=== PATIENT | female | born 2005 | race Two or more races ===

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

== ENCOUNTER 2024-02-02 18:55 | Emergency (ER) | payer SELFPAY ==
[2024-02-02] MEDS: Prochlorperazine 5 MG Tab PO ONE (20:28)
[2024-02-02] MEDS: diphenhydrAMINE 50 MG Cap PO ONE (20:28)
[2024-02-02] MEDS: Azithromycin 500 MG Tab PO ONE (22:31)
[2024-02-03 04:49] VITALS: BP 114/64; PULSE 87
== END 2024-02-02 22:35 | disposition home or self-care (01) ==
LOC: FB.ED 18:55
DX: J01.30 Acute sphenoidal sinusitis, unspecified (principal); R51.9 Headache, unspecified; E66.9 Obesity, unspecified; Z79.899 Other long term (current) drug therapy; Z86.16 Personal history of COVID-19; Z90.49 Acquired absence of other specified parts of digestive tract; Z68.31 Body mass index [BMI] 31.0-31.9, adult
CPT/HCPCS: 70450; 99284; A9270; Q0164

== ENCOUNTER 2024-02-27 00:35 | Emergency (ER) | payer SELFPAY ==
[2024-02-27 00:51] VITALS: BP 133/76; PULSE 96
[2024-02-27] MEDS: Ondansetron 4 MG Tab.DIS PO ONE (01:06)
[2024-02-27 01:18] LABS: BASOPHILS PERCENT AUTO 0.5 % (0.2-1.5); EOSINOPHILS PERCENT AUTO 0.6 % (0.6-8.1); HEMATOCRIT 30.3 % (34.2-48.2); HEMOGLOBIN 9.9 g/dL (11.4-15.5); LYMPHOCYTES ABSOLUTE AUTO 2.6 x10-3/uL (1.0-4.4); LYMPHOCYTES PERCENT AUTO 34.9 % (18.4-52.1); MEAN CORPUSCULAR HEMOGLOBIN 23.9 pg (23.9-33.9); MEAN CORPUSCULAR HGB CONC 32.7 g/dL (31.9-34.8); MONOCYTES ABSOLUTE AUTO 0.5 x10-3/uL (0.3-1.0); MONOCYTES PERCENT AUTO 7.1 % (4.4-15.7); NEUTROPHILS ABSOLUTE AUTO 4.3 x10-3/uL (1.5-6.3); NEUTROPHILS PERCENT AUTO 56.9 % (30.8-76.2); PLATELET COUNT,PLT 339 x10(3)uL (151-488); RED BLOOD CELL COUNT 4.16 x10(6)uL (3.60-5.20); RED CELL DISTRIBUTION WIDTH 16.2 % (12.3-16.5); WHITE BLOOD CELL COUNT,WBC 7.5 x10-3/uL (3.0-10.3)
[2024-02-27 01:21] LABS: BLOOD UREA NITROGEN,BUN 5 mg/dL (7-18); BUN/CREATININE RATIO 7.1 (9-20); CALCIUM 8.9 mg/dL (8.2-10.1); CARBON DIOXIDE,CO2 25 mmol/L (21-32); CHLORIDE,CL 106 mmol/L (100-110); CREATININE 0.7 mg/dL (0.55-1.02); EST CRCL DRUG DOSING (CG) 116.32 mL/min; ESTIMATED GFR 128 mL/min (>60); GLUCOSE RANDOM 92 mg/dL (80-116); POTASSIUM,K 3.5 mmol/L (3.5-5.3); SODIUM,NA 142 mmol/L (135-145)
[2024-02-27] MEDS: hydrOXYzine HCl 50 MG/ML SDV IM ONE (01:26)
[2024-02-27 01:27] LABS: ALANINE AMINOTRANSFERASE,ALT 12 U/L (12-36); ALBUMIN 3.9 g/dL (3.2-4.5); ALKALINE PHOSPHATASE 71 IU/L (56-112); ASPARTATE AMNIOTRANSFERASE,AST 15 IU/L (5-25); BILIRUBIN TOTAL 0.3 mg/dL (0.1-1.2); PROTEIN TOTAL,TP 7.9 g/dL (6.0-8.0)
== END 2024-02-27 01:39 | disposition home or self-care (01) ==
LOC: FB.ED 00:35
DX: R10.84 Generalized abdominal pain (principal); K21.9 Gastro-esophageal reflux disease without esophagitis; E66.9 Obesity, unspecified; Z86.16 Personal history of COVID-19; Z91.89 Other specified personal risk factors, not elsewhere classified; Z90.49 Acquired absence of other specified parts of digestive tract; Z79.899 Other long term (current) drug therapy; Z68.31 Body mass index [BMI] 31.0-31.9, adult
CPT/HCPCS: 36415; 80053; 81025; 85025; 96372; 99284; J3410; Q0162

== ENCOUNTER 2024-07-12 22:25 | Emergency (ER) | payer SELFPAY ==
[2024-07-12] MEDS: Ondansetron 4 MG Tab.DIS PO ONE (22:46)
== END 2024-07-12 23:32 | disposition home or self-care (01) ==
LOC: FB.ED 22:25
DX: J06.9 Acute upper respiratory infection, unspecified (principal); E66.9 Obesity, unspecified; Z90.49 Acquired absence of other specified parts of digestive tract; Z86.16 Personal history of COVID-19; Z79.899 Other long term (current) drug therapy
CPT/HCPCS: 87428; 87651; 99283; Q0162

== ENCOUNTER 2024-08-18 00:51 | Emergency (ER) | payer SELFPAY ==
[2024-08-18 02:16] VITALS: BP 131/80; PULSE 111
[2024-08-18] MEDS: Ketorolac 30 MG/ML SDV IM ONE (02:29)
== END 2024-08-18 02:10 | disposition home or self-care (01) ==
LOC: FB.ED 00:51
DX: J10.1 Influenza due to other identified influenza virus with other respiratory manifestations (principal); M54.9 Dorsalgia, unspecified; Z79.899 Other long term (current) drug therapy; Z86.16 Personal history of COVID-19
CPT/HCPCS: 87428-QW; 99283

== ENCOUNTER 2024-08-27 23:59 | Emergency (ER) | payer SELFPAY ==
[2024-08-28 00:23] VITALS: BP 128/73; PULSE 112
[2024-08-28] MEDS: Ketorolac 30 MG/ML SDV IM ONE (00:31)
== END 2024-08-28 01:10 | disposition home or self-care (01) ==
LOC: FB.ED 23:59
DX: J01.10 Acute frontal sinusitis, unspecified (principal); E66.9 Obesity, unspecified; Z86.16 Personal history of COVID-19; Z90.49 Acquired absence of other specified parts of digestive tract; Z79.899 Other long term (current) drug therapy
CPT/HCPCS: 96372; 99283; J1885

== ENCOUNTER 2025-02-21 00:57 | Emergency (ER) | payer SELFPAY ==
[2025-02-21 01:12] VITALS: BP 131/69; PULSE 100
[2025-02-21] MEDS ORDERED: Sodium Chloride 0.9% 10 ML Syringe FLUSH PRN (01:44)
[2025-02-21 01:53] LABS: GLUCOSE,URINE NORMAL (NORMAL); OCCULT BLOOD,URINE LARGE (NEGATIVE)
[2025-02-21 01:57] LABS: APPEARANCE,URINE SLIGHTLY CLOUDY (CLEAR); SQUAMOUS EPITHELIAL CELLS,UR OCCASIONAL (NS,R,O)
[2025-02-21 02:12] LABS: BASOPHILS ABSOLUTE AUTO 0.0 x10-3/uL (0.0-0.1); BASOPHILS PERCENT AUTO 0.3 % (0.2-1.5); EOSINOPHILS ABSOLUTE AUTO 0.0 x10-3/uL (0.0-0.8); EOSINOPHILS PERCENT AUTO 0.1 % (0.6-8.1); LYMPHOCYTES ABSOLUTE AUTO 1.1 x10-3/uL (1.0-4.4); LYMPHOCYTES PERCENT AUTO 13.3 % (18.4-52.1); MEAN PLATELET VOLUME 8.0 fL (7.1-12.4); MONOCYTES ABSOLUTE AUTO 0.7 x10-3/uL (0.3-1.0); MONOCYTES PERCENT AUTO 8.1 % (4.4-15.7); NEUTROPHILS ABSOLUTE AUTO 6.7 x10-3/uL (1.5-6.3); NEUTROPHILS PERCENT AUTO 78.2 % (30.8-76.2); PLATELET COUNT,PLT 254 x10(3)uL (151-488); RED BLOOD CELL COUNT 4.28 x10(6)uL (3.60-5.20); RED CELL DISTRIBUTION WIDTH 17.1 % (12.3-16.5); WHITE BLOOD CELL COUNT,WBC 8.6 x10-3/uL (3.0-10.3)
[2025-02-21 02:14] LABS: BLOOD UREA NITROGEN,BUN 10 mg/dL (7-18); CARBON DIOXIDE,CO2 27 mmol/L (21-32); CHLORIDE,CL 106 mmol/L (100-110); CREATININE 0.7 mg/dL (0.55-1.02); EST CRCL DRUG DOSING (CG) 115.36 mL/min; ESTIMATED GFR 127 mL/min (>60); GLUCOSE RANDOM 102 mg/dL (80-116); POTASSIUM,K 4.5 mmol/L (3.5-5.3); SODIUM,NA 141 mmol/L (135-145)
[2025-02-21 02:20] LABS: A/G RATIO 1.0; ALANINE AMINOTRANSFERASE,ALT 20 U/L (12-36); ASPARTATE AMNIOTRANSFERASE,AST 19 IU/L (5-25); BILIRUBIN TOTAL 0.3 mg/dL (0.1-1.3); PROTEIN TOTAL,TP 7.6 g/dL (6.0-8.0)
[2025-02-21] MEDS: Ketorolac 30 MG/ML SDV IVPUSH ONE (02:23)
[2025-02-21] MEDS: Ondansetron 4 MG/2 ML SDV IVPUSH ONE (02:23)
[2025-02-21] MEDS: Iopamidol 755 Mg/ML 100 ML Bottle IV ONE (04:18)
== END 2025-02-21 03:04 | disposition home or self-care (01) ==
LOC: FB.ED 00:57
DX: N94.6 Dysmenorrhea, unspecified (principal); D64.9 Anemia, unspecified; K21.9 Gastro-esophageal reflux disease without esophagitis; Z86.16 Personal history of COVID-19; Z79.899 Other long term (current) drug therapy
CPT/HCPCS: 74177; 80053; 81001; 81025; 83690; 85025; 96361; 96374; 96375; 99283; 99284; J1885; J2405; J7030; Q9967

== ENCOUNTER 2025-06-12 21:56 | Emergency (ER) | payer SELFPAY ==
[2025-06-12 22:09] VITALS: BP 125/71; PULSE 98
== END 2025-06-12 22:37 | disposition home or self-care (01) ==
LOC: FB.ED 21:56
DX: G43.809 Other migraine, not intractable, without status migrainosus (principal); Z79.899 Other long term (current) drug therapy
CPT/HCPCS: 99283